=== PATIENT | female | born 1980 | race Caucasian/White ===

== ENCOUNTER 2018-11-16 14:40 | Emergency (ER) | payer OTHER ==
[~2018-11-16] VITALS: Ht 165.1 cm; Wt 90.7 kg
[2018-11-16] MEDS ORDERED: ANTACID SUSP 30 ML UDC (MYLANTA) PO STA (15:13)
[2018-11-16] MEDS ORDERED: LIDOCAINE 2% VISCOUS 15 ML UDC PO STA (15:13)
[2018-11-16] MEDS ORDERED: ONDANSETRON 4 MG (ZOFRAN) ORAL DISSOLVE TAB PO STA (15:13)
--- NOTE | 2018-11-16 15:23 | ED Abdominal Pain ---
General Chief Complaint: Abdominal/GI Problems Stated Complaint: STOMACH PAIN/HANDS GOING NUMB History of Present Illness Date Seen by Provider: Nov 16, 2018 Time Seen by Provider: 14:59 Timing/Duration: 1 Hour Severity/Quality: Moderate, Burning Location: Epigastric Radiation: Chest Activities at Onset: None Modifying Factors: Worsens With Resting Associated Symptoms: No Back Pain, No Swelling/Mass in Abdomen This is a 38-year-old female with a history of hypertension and tobacco abuse here for epigastric pain that started about 45 minutes prior to arrival. She has had about 4 prior episodes that were similar to this however today she also has a burning sensation in the lower substernal region, this does not radiate. No shortness of breath. She did start to have some lightheadedness and "seeing stars", symmetrical distal paresthesias in the fingers bilaterally. No palpitations. No leg swelling. She did have some orange juice with breakfast at about 10 AM and is not sure if this could be causing her symptoms. No drug use. No first-degree relatives with premature coronary artery disease or stroke. No recent stress test or cardiac catheterization. Denies abdominal surgeries. Allergies and Home Medications Allergies Coded Allergies: No Known Drug Allergies (Unverified , 11/16/18) Patient Home Medication List Home Medication List Reviewed: Yes Review of Systems Review of Systems Constitutional: no symptoms reported EENTM: No Symptoms Reported Respiratory: No Symptoms Reported Cardiovascular: See HPI, Chest Pain Gastrointestinal: See HPI, Abdominal Pain Genitourinary: No Symptoms Reported Musculoskeletal: no symptoms reported Skin: no symptoms reported Psychiatric/Neurological: No Symptoms Reported Endocrine: No Symptoms Reported Hematologic/Lymphatic: No Symptoms Reported Past Vahrhse-Ltfkhc-Rixkmz Hx Patient Social History Recent Foreign Travel: No (N) Contact w/Someone Who Travel: No (N) Physical Exam Vital Signs Vital Signs - First Documented 11/16/18 15:41 Temp 98.1 Pulse 73 Resp 16 B/P (MAP) 140/90 (107) Pulse Ox 100 O2 Delivery Room Air Capillary Refill : Height/Weight/BMI Height: '" Weight: lbs. oz. kg; BMI Method: General Appearance: no apparent distress HEENT: PERRL/EOMI Neck: supple Respiratory: lungs clear Cardiovascular: normal peripheral pulses, regular rate, rhythm, no edema Peripheral Pulses: 2+ Radial Pulses (R) (symmetrical popliteal pulses bilaterally), 2+ Radial Pulses (L) Gastrointestinal: normal bowel sounds, soft (there is moderate diffuse epigastric tenderness, negative Bowens sign, no rebound rigidity or guarding) Rectal: deferred Extremities: non-tender; No swelling Neurologic/Psychiatric: alert, normal mood/affect; No abnormal gait Skin: normal color, warm/dry Progress/Results/Core Measures Results/Orders Lab Results Laboratory Tests Test 11/16/18 14:47 11/16/18 15:15 Range/Units Urine Color YELLOW Urine Clarity CLEAR Urine pH 8 5-9 Urine Specific Francis 1.010 L 1.016-1.022 Urine Protein NEGATIVE NEGATIVE Urine Glucose (UA) NEGATIVE NEGATIVE Urine Ketones NEGATIVE NEGATIVE Urine Nitrite NEGATIVE NEGATIVE Urine Bilirubin NEGATIVE NEGATIVE Urine Urobilinogen 0.2 NORMAL MG/DL Urine Leukocyte Esterase TRACE NEGATIVE Urine RBC (Auto) TRACE H NEGATIVE Urine Test NEGATIVE NEGATIVE White Blood Count 11.0 4.3-11.0 10^3/uL Red Blood Count 4.23 L 4.35-5.85 10^6/uL Hemoglobin 12.8 11.5-16.0 G/DL Hematocrit 39 35-52 % Mean Corpuscular Volume 92 80-99 FL Mean Corpuscular Hemoglobin 30 25-34 PG Mean Corpuscular Hemoglobin Concent 33 32-36 G/DL Red Cell Distribution Width 12.7 10.0-14.5 % Platelet Count 302 130-400 10^3/uL Mean Platelet Volume 9.5 7.4-10.4 FL Neutrophils (%) (Auto) 69 42-75 % Lymphocytes (%) (Auto) 21 12-44 % Monocytes (%) (Auto) 7 0-12 % Eosinophils (%) (Auto) 1 0-10 % Basophils (%) (Auto) 0 0-10 % Neutrophils # (Auto) 7.6 1.8-7.8 X 10^3 Lymphocytes # (Auto) 2.3 1.0-4.0 X 10^3 Monocytes # (Auto) 0.8 0.0-1.0 X 10^3 Eosinophils # (Auto) 0.2 0.0-0.3 10^3/uL Basophils # (Auto) 0.0 0.0-0.1 10^3/uL Sodium Level 138 135-145 MMOL/L Potassium Level 3.6 3.6-5.0 MMOL/L Chloride Level 102 98-107 MMOL/L Carbon Dioxide Level 22 21-32 MMOL/L Anion Gap 14 5-14 MMOL/L Blood Urea Nitrogen 14 7-18 MG/DL Creatinine 0.66 0.60-1.30 MG/DL Estimat Glomerular Filtration Rate > 60 BUN/Creatinine Ratio 21 Glucose Level 107 H 70-105 MG/DL Calcium Level 8.7 8.5-10.1 MG/DL Corrected Calcium 8.7 8.5-10.1 MG/DL Total Bilirubin 0.3 0.1-1.0 MG/DL Aspartate Amino Transf (AST/SGOT) 79 H 5-34 U/L Alanine Aminotransferase (ALT/SGPT) 47 0-55 U/L Alkaline Phosphatase 86 40-136 U/L Troponin T 6 <=10 NG/L Total Protein 7.0 6.4-8.2 GM/DL Albumin 4.0 3.2-4.5 GM/DL Lipase 34 8-78 U/L My Orders Orders - SHANTA,TAPAN T DO Hcg,Qualitative Urine (11/16/18 14:58) Cbc With Automated Diff (11/16/18 15:09) Chest 1 View Ap/Pa Only (11/16/18 15:09) Ekg Tracing (11/16/18 15:09) Comprehensive Metabolic Panel (11/16/18 15:09) O2 (11/16/18 15:09) Monitor-Rhythm Ecg Trace Only (11/16/18 15:09) Saline Lock/Iv-Start (11/16/18 15:09) Lipase (11/16/18 15:09) Lidocaine 2% Viscous 15 Ml (Xylocaine Vi (11/16/18 15:13) Antacid Suspension (Mylanta Suspension (11/16/18 15:13) Ondansetron Oral Dissolve Tab (Zofran (11/16/18 15:13) Urinalysis Dipstick Only (11/16/18 15:15) Ct Abd/Pelv W (Appendicitis) (11/16/18 16:17) Morphine Injection (Morphine Injection (11/16/18 16:17) Iopamidol 61% Injection (Isovue 300 61% (11/16/18 16:30) Sodium Chloride Flush (Catheter Flush Sy (11/16/18 16:30) Contrast Received (Contrast Received) (11/16/18 16:30) Ns (Ivpb) (Sodium Chloride 0.9% Ivpb Bag (11/16/18 16:30) Hydrocodone/Apap 5/325 Tablet (Lortab 5 (11/16/18 17:34) Medications Given in ED Current Medications Medications Dose Ordered Sig/Carlos Route Start Time Stop Time Status Last Admin Dose Admin Iopamidol 100 ml ONCE ONCE IV 11/16/18 16:30 11/16/18 16:47 DC 11/16/18 16:43 100 ML Sodium Chloride 10 ml NEEDED PRN IV 11/16/18 16:30 11/16/18 16:44 10 ML Sodium Chloride 50 ml ONCE ONCE IV 11/16/18 16:30 11/16/18 16:47 DC 11/16/18 16:43 40 ML Vital Signs/I&O 11/16/18 15:41 Temp 98.1 Pulse 73 Resp 16 B/P (MAP) 140/90 (107) Pulse Ox 100 O2 Delivery Room Air Progress Progress Note #1: Progress Note This is a 38-year-old female who smokes with a history of hypertension complaining of epigastric pain for about an hour at this point. She's had the same thing 4 times in the past, today she is also having some lower chest discomfort that she specifically describes as "burning". This is nonexertional, no ripping or tearing pain, no migratory pain, her paresthesias are present symmetrically in the fingertips bilaterally and are resolving. We obtained an ECG which has no ischemic changes. We will check a chest x-ray, troponin, basic labs. Suspicion for acute coronary syndrome is low however we will continue cardiac monitoring and will reassess after GI cocktail. Abdomen is benign, CT imaging is not indicated. This is not consistent with acute cholecystitis however biliary colic is a strong consideration. Peptic ulcer disease or pancreatitis are considerations. Progress Note #2: Progress Note Patient has had some improvement in her pain, at first transiently with GI cocktail and then more persistent relief with IV morphine. Patient's presentation is most consistent with biliary colic, there may be a component of gastritis or peptic ulcer disease superimposed. Her symptoms are not consistent with acute cholecystitis. There is no obstructive pattern on LFTs. Also there is no fever, no leukocytosis, no pericholecystic fluid. This facility does not have ultrasound available for further characterization however at this time based on the above it does not appear the patient has acute cholecystitis or biliary obstruction. I did offer patient transfer to [facility] where an ultrasound would be available and where she could have a surgical consult however I also discussed the strategy of going home, only consuming a clear liquid diet today and tomorrow, and carefully watching for any progression of her symptoms, also development of new symptoms such as fever, focal right upper quadrant pain, vomiting. I will not prescribe a narcotic as if patient's symptoms do not improve by the morning or certainly if they worsen she has been instructed to return either to this emergency department or to [place] or any other emergency Department of her choosing. EKG : Comment 1500: Normal sinus rhythm rate of 65. Normal axis. Early precordial R-wave progression. Nonspecific T-wave flattening in aVL. Small inferior and lateral Q waves. Departure Impression Primary Impression: Biliary colic Disposition: 01 HOME, SELF-CARE Condition: Stable Departure-Patient Inst. Referrals: LULÚ HERNANDEZ MD (PCP) Primary Care Physician MOE TREVINO DO Patient Instructions: POSS GALLSTONE-W/BILIARY COLIC TAPAN WOMACK DO Nov 16, 2018 15:23
[2018-11-16 15:24] LABS: BILIRUBIN,URINE NEGATIVE (NEGATIVE); CLARITY,URINE CLEAR; COLOR,URINE YELLOW; GLUCOSE, URINE (UA) NEGATIVE (NEGATIVE); KETONES,URINE NEGATIVE (NEGATIVE); LEUKOCYTE ESTERASE ,URINE TRACE (NEGATIVE); NITRITE,URINE NEGATIVE (NEGATIVE); PH,URINE 8 (5-9); PROTEIN,URINE NEGATIVE (NEGATIVE); UROBILINOGEN,URINE 0.2 MG/DL (NORMAL)
[2018-11-16 15:26] LABS: HEMATOCRIT 39 % (35-52); HEMOGLOBIN 12.8 G/DL (11.5-16.0); LYMPHOCYTES % (AUTO) 21 % (12-44); MEAN CORPUSCULAR HEMOGLOBIN 30 PG (25-34); MEAN CORPUSCULAR HGB CONC 33 G/DL (32-36); MEAN CORPUSCULAR VOLUME 92 FL (80-99); MEAN PLATELET VOLUME 9.5 FL (7.4-10.4); MONOCYTES % (AUTO) 7 % (0-12); NEUTROPHILS % (AUTO) 69 % (42-75); PLATELET COUNT 302 10^3/uL (130-400); RED CELL DISTRIBUTION WIDTH 12.7 % (10.0-14.5)
[2018-11-16 15:27] LABS: BASOPHILS % (AUTO) 0 % (0-10); EOSINOPHILS # (AUTO) 0.2 10^3/uL (0.0-0.3); EOSINOPHILS % (AUTO) 1 % (0-10); LYMPHOCYTES # (AUTO) 2.3 X 10^3 (1.0-4.0); MONOCYTES # (AUTO) 0.8 X 10^3 (0.0-1.0); NEUTROPHILS # (AUTO) 7.6 X 10^3 (1.8-7.8)
[2018-11-16 15:55] LABS: ALANINE AMINOTRANSFERASE 47 U/L (0-55); ALKALINE PHOSPHATASE 86 U/L (40-136); BILIRUBIN,TOTAL 0.3 MG/DL (0.1-1.0); BUN/CREATININE RATIO 21; CALCIUM 8.7 MG/DL (8.5-10.1); CARBON DIOXIDE 22 MMOL/L (21-32); CHLORIDE 102 MMOL/L (98-107); CREATININE SERUM 0.66 MG/DL (0.60-1.30); GFR ESTIMATED > 60; GLUCOSE 107 MG/DL (70-105); POTASSIUM 3.6 MMOL/L (3.6-5.0); SODIUM 138 MMOL/L (135-145)
[2018-11-16 15:56] LABS: LIPASE 34 U/L (8-78)
--- NOTE | 2018-11-16 15:58 | Diagnostic Imaging Report ---
INDICATION: Chest pain. FINDINGS: The heart size, mediastinal configuration, and pulmonary vascularity are within normal limits. There is no pleural effusion, pneumothorax, or pneumonia. The osseous structures are unremarkable. IMPRESSION: No acute cardiopulmonary abnormality. Dictated by: Dictated on workstation # [id number]
[2018-11-16] MEDS ORDERED: morphine INJ 10 MG/ML 1ML (SYR OR VIAL) IVP STA (16:17)
[2018-11-16] MEDS ORDERED: CATHETER FLUSH 10 ML SYR IV PRN (16:30)
[2018-11-16] MEDS ORDERED: RECEIVED CONTRAST (Hold Metformin) IV SCH (16:30)
[2018-11-16] MEDS ORDERED: NS 50 ML (IVPB) BAG IV ONE (16:30)
[2018-11-16] MEDS ORDERED: IOPAMIDOL 61% 100 ML (ISOVUE 300) VIAL IV ONE (16:30)
--- NOTE | 2018-11-16 17:09 | Diagnostic Imaging Report ---
PROCEDURE: CT abdomen and pelvis with contrast, rule out appendicitis. TECHNIQUE: Multiple contiguous axial images were obtained through the abdomen and pelvis after the administration of intravenous contrast. INDICATION: Upper abdominal and epigastric pain. COMPARISON: None FINDINGS: Included portions of the lung bases are clear. CT abdomen: Large gallstone is identified within the lumen of the gallbladder and measures approximately 2.3 cm in diameter. There is also mild distention of the gallbladder, as it measures approximately 4 cm in diameter. There may be some hyperdense layering sludge as well. There is no appreciable pericholecystic free fluid. Gallbladder wall is not well assessed. There does appear to be perhaps mild intrahepatic biliary ductal dilatation. Liver has an otherwise unremarkable CT appearance. Kidneys, adrenal glands, spleen, and pancreas have a normal CT appearance. Small bowel loops are nondistended. Normal appendix is identified. There is no loculated fluid collection, free fluid, nor free air within the abdomen. No abnormal mesenteric or retroperitoneal adenopathy is seen. Bony structures show no acute abnormalities. CT pelvis: Urinary bladder is grossly unremarkable. There is no loculated fluid collection, free fluid, nor free air within the pelvis. No abnormal lymph nodes are identified. There is probable collapsing left ovarian follicle or cyst. Bony structures show no acute abnormalities. IMPRESSION: 1. Large gallstone and possible sludge within the lumen of the gallbladder. There does appear to be perhaps mild prominence of the intrahepatic biliary ductal system, which does raise concern for some component of common bile duct obstruction. Evaluation of the common bile duct, however, is suboptimal on this exam. If there is concern for acute cholecystitis, right upper quadrant abdominal sonogram may be of benefit. 2. Normal appendix. Dictated by: Dictated on workstation # [id number]
[2018-11-16] MEDS ORDERED: HYDROcodone/APAP 5 MG/325 MG (LORTAB) TAB PO STA (17:34)
[2018-11-16 18:30] VITALS: BP 142/94
== END 2018-11-16 18:43 | disposition home or self-care (01) ==
LOC: ER FS 14:44
DX: K80.50 Calculus of bile duct without cholangitis or cholecystitis without obstruction (principal)
CPT/HCPCS: 36415; 71045; 74177; 80053; 81002; 83690; 84484; 84703; 85025; 93005; 93041

== ENCOUNTER 2018-11-19 13:45 | Outpatient (CLI) | payer OTHER ==
[~2018-11-19] VITALS: Ht 165.1 cm; Wt 90.7 kg
[2018-11-19] MEDS ORDERED: LOSA1TAB23 PO (14:10)
== END 2018-11-19 14:18 ==
LOC: PREOP 13:45
PROVIDERS: ATTEND Surgery
DX: Z01.818 Encounter for other preprocedural examination (principal)

== ENCOUNTER 2018-11-20 05:49 | Day surgery (SDC) | payer OTHER ==
[~2018-11-20] VITALS: Ht 165.1 cm; Wt 90.7 kg
[~2018-11-20 05:49] MED LIST: LOSA1TAB23 PO
[2018-11-20] MEDS ORDERED: ceFAZolin 2 GM IV Premixed 50 ML IV ONE (06:30)
[2018-11-20 06:35] VITALS: BP 111/72
[2018-11-20] MEDS: LACTATED RINGERS 1,000 ML IV PRN ×2 (06:35→09:11)
[2018-11-20] MEDS ORDERED: CATHETER FLUSH 10 ML SYR IV PRN (06:45)
[2018-11-20] MEDS ORDERED: fentaNYL INJECTION 100 MCG/2 ML AMP ONE ×2 (06:58→09:39)
[2018-11-20] MEDS ORDERED: proPOfol 200 MG/20 ML (DIPRIVAN) VIAL IV ONE (06:58)
[2018-11-20] MEDS ORDERED: ROCURONIUM 10 MG/ML 5 ML SYRINGE IV ONE (06:58)
[2018-11-20] MEDS ORDERED: ONDANSETRON 4 MG/2 ML (SDV) Z0FRAN ONE (06:58)
[2018-11-20] MEDS ORDERED: LIDOCAINE PF 2% 5 ML (XYLOCAINE) VIAL ONE (06:58)
[2018-11-20] MEDS ORDERED: MIDAZOLAM 2 MG/2 ML (VERSED) VIAL ONE (06:58)
[2018-11-20] MEDS ORDERED: DEXAMETHASONE 10 MG/ML (DECADRON) 1 ML VIAL ONE (07:01)
[2018-11-20] MEDS ORDERED: SEVOFLURANE (ULTANE) 15 ML INHAL SOLN ONE ×6 (07:01→09:47)
[2018-11-20] MEDS ORDERED: BUP/EPI 0.5% 1:200,000 (SENSORCAINE) 30 ML VIAL ONE (07:04)
[2018-11-20] MEDS ORDERED: LIDOCAINE 1% INJ 20 ML 20 ML VIAL ONE (07:05)
[2018-11-20] MEDS ORDERED: NEOSTIGMINE 1 MG/ML 5 ML SYRINGE ONE (09:46)
[2018-11-20] MEDS ORDERED: GLYCOPYRROLATE 0.2 MG/ML (ROBINUL) 2 ML VIAL ONE (09:46)
--- NOTE | 2018-11-20 09:46 | Progress Note-Post Operative ---
Post-Operative Progess Note Surgeon (s)/Pastry Baker (s) Surgeon THERESA SOLORIO DO Pastry Baker: Ben Pre-Operative Diagnosis Cholecystitis with Cholelithiasis Post-Operative Diagnosis same - acute Procedure & Operative Findings Date of Procedure 11/20/18 Procedure Performed/Findings Lap hailee with IOC Anesthesia Type GET Estimated Blood Loss Estimated blood loss (mL): Scant Specimens/Packing Specimens Removed GB and contents THERESA SOLORIO DO Nov 20, 2018 09:46
--- NOTE | 2018-11-20 09:48 | Discharge Inst-Surgical ---
Discharge Inst-Surgical Depart Medication/Instructions New, Converted or Re-Newed RX: RX Given to Pt/Family (got Rx yesterday) Patient Instructions Follow up Appt: Make appointment for 1 week. [phone] Instructions: No lifting greater than 20 pounds. No strenuous activity. May shower in 24 hours, no tub bath or soaking. Use incentive spirometer at home as directed. No Smoking Skin/Wound Care: May remove bandages in am. You need to leave the Dermabond on incision it will fall off on it's own. Symptoms to Report: Appetite Changes, Extremity Discoloration, Numbness/Tingling, Swelling Increased , Bleeding Excessive, Eyesight Changes, Pain Increased, Urine Color Change, Constipation(Persistent), Fever over 101 degree F, Pain/Pressure in chest, Urinating Difficulty, Cough Up/Vomit Blood, Heart Beat Irreg/Pounding, Pain/ Pressure in jaw, Cramps in feet or legs, Lightheadedness, Pain/Pressure in shoulder, Diarrhea(Persistent), Memory Changes Suddenly, Questions/Concerns, Weight gain consecutive days, Dizziness/Fainting, Nausea/Vomiting, Shortness of Breath, Weight gain over 2 pounds If questions or concerns contact your physician Or seek help at emergency department. Activity Activity as Tolerated: Yes Activity Instructions: Avoid Stress to Incision Driving Instructions: No Driving/Refer to Diet Discharge Diet: Avoid Fatty Foods, Low Fat/Low Cholesterol Diet After 24 Hours: Clear Liquid if Nauseous If Any Problems/Questions/Issu: Contact Your Physician, Go to Emergency Room Skin/Wound Care Infection Signs and Symptoms: Increased Redness, Foul Odor of Wound, Increased Drainage, Skin Itchy or Has a Rash, Increased Swelling, Temperature Above 101 F Wound Care Comment: Heating pad to shoulder or neck tonight for pain Bathing Instructions: Shower Stitches/Jose/Dermabond Dis: Dermabond Ice Pack: Ice On and Off Site (as needed for pain at incision sites) THERESA SOLORIO DO Nov 20, 2018 09:48
[2018-11-20] MEDS ORDERED: KETOROLAC 30 MG/ML VIAL ONE (10:02)
[2018-11-20] MEDS ORDERED: PROMETHAZINE INJ 25 MG/ML (PHENERGAN) AMP ONE (10:02)
[2018-11-20] MEDS ORDERED: HYDROmorphone 2 MG/ML VIAL (DILAUDID) IV ONE (10:15)
[2018-11-20] MEDS ORDERED: fentaNYL INJECTION 100 MCG/2 ML AMP IVP ONE (10:15)
[2018-11-20] MEDS ORDERED: morphine INJ 10 MG/ML 1ML (SYR OR VIAL) IVP ONE (10:15)
[2018-11-20] MEDS ORDERED: MEPERIDINE (DEMEROL) INJ 50 MG/ML IVP ONE (10:15)
[2018-11-20] MEDS ORDERED: KETOROLAC 30 MG/ML VIAL IVP ONE (10:15)
[2018-11-20] MEDS ORDERED: PROMETHAZINE INJ 25 MG/ML (PHENERGAN) AMP IVP ONE (10:15)
[2018-11-20] MEDS ORDERED: ONDANSETRON 4 MG/2 ML (SDV) Z0FRAN IVP PRN (10:15)
[2018-11-20 10:55] VITALS: BP 115/66
[2018-11-20 11:25] VITALS: BP 103/68
[2018-11-20] MEDS ORDERED: HYDROcodone/APAP 5 MG/325 MG (LORTAB) TAB ONE (11:25)
[2018-11-20] MEDS ORDERED: HYDROcodone/APAP 5 MG/325 MG (LORTAB) TAB PO ONE (11:30)
--- NOTE | 2018-11-20 11:50 | Anesthesia-General Post-Op ---
General Patient Condition Mental Status/LOC: Same as Preop Cardiovascular: Satisfactory Nausea/Vomiting: Absent Respiratory: Satisfactory Pain: Controlled Complications: Absent Post Op Complications Complications None Follow Up Care/Instructions Patient Instructions None needed. Anesthesia/Patient Condition Patient Condition Patient is doing well, no complaints, stable vital signs, no apparent adverse anesthesia problems. MADELYN JORGE DO Nov 20, 2018 11:50
[2018-11-20 11:55] VITALS: BP 107/69
[2018-11-20 12:15] VITALS: BP 107/69
--- NOTE | 2018-11-20 13:00 | Diagnostic Imaging Report ---
EXAMINATION: Fluoroscopy INDICATION: Laparoscopic cholecystectomy Fluoroscopic assistance was provided for Dr. Rae. 26 seconds of fluoroscopy time was utilized. 153 spot images were obtained. There has been opacification of the common bile duct via a cystic duct catheter. The common bile duct where visualized shows no defect that would suggest a calculus. There is extension of the contrast into both the small bowel and the main pancreatic duct. IMPRESSION: Fluoroscopic assistance was read for Dr. Rae. Dictated by: Dictated on workstation # [id number]
--- NOTE | 2018-11-20 14:14 | OPERATIVE REPORT ---
DATE OF SERVICE: PREOPERATIVE DIAGNOSES: Chronic cholecystitis with cholelithiasis. POSTOPERATIVE DIAGNOSES: Acute cholecystitis with cholelithiasis. PROCEDURE: Laparoscopic cholecystectomy, intraoperative cholangiogram. SURGEON: Phil Rae DO. REPAIR ARMATURE WINDER HELPER: Reji Contreras DO. ANESTHESIA: General endotracheal tube. SPECIMEN: Gallbladder and contents. BLOOD LOSS: Scant. FLUIDS: Per anesthesia. POSTOPERATIVE CONDITION: Stable. INDICATION FOR PROCEDURE: The patient is a 38-year-old female who has been having abdominal pain and went to the emergency room, diagnosed with cholecystitis and cholelithiasis, seen in my office yesterday, looked to be in pretty good amount of pain and set up for an urgent cholecystectomy. FINDINGS: The patient had adhesions to the gallbladder, looked like an acute cholecystitis or some inflammation around it as well and it was thickened. PROCEDURE NOTE: After informed consent was obtained, the patient was brought to the operating room, placed on the table in supine position. She was sterilely prepped and draped in normal fashion. Local lidocaine used to infiltrate the skin above the umbilicus. Made incision with #11 blade, carried down through the skin and subcutaneous tissue, then deepened down through the subcutaneous tissue with Bovie electrocautery down to fascia. Fascia incised with Bovie electrocautery. Bluntly entered the abdomen, swept the finger around, placed 0 Vicryl [id number] suture and placed 11 mm trocar port under direct visualization, created pneumoperitoneum and then placed 3 more ports in normal fashion using local lidocaine, 11 blade for stab incision and the VersaStep system, all done under direct observation, one Subxiphoid and two in the right upper quadrant. The patient then placed in reverse Trendelenburg, slightly rotated left. Upon entry, noted gallbladder was distended, looked to be erythematous and there was an omental fat stuck to it, able to grasp the gallbladder at the fundus and taken in superior direction and started taking down the adhesions. This indicated at least chronic but it looked like acute cholecystitis, carefully taken these down with blunt dissection as well as Bovie electrocautery, pushing these out of the way, actually pushing duodenum off the gallbladder as well and then able to grasp the gallbladder down to Helga's pouch and pulled in the inferolateral direction, started dissecting out the cystic duct and cystic artery. I was able to get around the cystic duct and cystic artery and placed 1 clip distally in the cystic duct and the one distally and one proximally on the cystic artery. Cut the cystic duct long-term through Metzenbaum scissors. Placed a cholangiogram catheter and shot a cholangiogram. Good spillage of dye down the cystic duct into the common bile duct and down the small intestine as well as up into common hepatic and the right hepatic. The patient had an odd anatomy where she actually had a very long cystic duct. It looked like it was almost coming off from the more medial than the common hepatic duct and did not really have a left hepatic duct, looked like the right came up and then went all the way across to the left. Shot an extra cholangiogram to make sure there is not another branch or this was not the cystic duct and left hepatic but it did not appear to be that was the case. Removed the cholangiogram catheter, placed 2 clips proximally on the cystic duct and cut the cystic duct and cystic artery with Metzenbaum scissors. Encountered a posterior branch of the cystic artery and placed another clip proximally and distally and cut this with Metzenbaum scissors and then we started to remove the gallbladder from bed of liver with L-hook cautery, which was completely removed, placed a bag in the abdomen, placed the gallbladder in the bag and then removed this through a supraumbilical incision. Placed the port back in the abdomen, copiously irrigated with normal saline, suctioned this out. There is no bleeding from the bed of liver, pictures taken. At this point, I then placed the patient supine, removed all ports under direct visualization, allowed pneumoperitoneum to escape as well as suction out. Closed the supraumbilical incision, closing the fascia with 0 Vicryl [id number] suture previously placed. Copiously irrigated all incisions with normal saline, closing the 3 small 5 mm incisions with a single interrupted 4-0 undyed Monocryl subcuticular stitch. Closed the supraumbilical incision with 3 interrupted 4-0 undyed Monocryl subcuticular stitches. Area was cleaned and dried and Dermabond placed as well as bandaged. The patient then transferred to recovery room in stable condition. Sponge, instrument and needle count correct at the end of the case. Job ID: [id number] DocumentID: [id number] Dictated Date: 11/20/2018 11:38:55 Quality Review Trainer Date: 11/20/2018 14:13:18 Dictated By: PHIL RAE DO
== END 2018-11-20 12:15 | disposition home or self-care (01) ==
LOC: SDC 05:49
PROVIDERS: ATTEND Surgery
DX: K80.12 Calculus of gallbladder with acute and chronic cholecystitis without obstruction (principal); I10 Essential (primary) hypertension; F17.210 Nicotine dependence, cigarettes, uncomplicated; Z79.899 Other long term (current) drug therapy; Z11.2 Encounter for screening for other bacterial diseases
CPT/HCPCS: 84703; 87081; 88304; 94664